=== PATIENT | male | born 1965 | race Caucasian/White ===

== ENCOUNTER 2017-09-01 06:51 | Day surgery (SDC) | payer OTHER ==
[~2017-09-01] VITALS: Ht 182.9 cm; Wt 106.6 kg
--- NOTE | 2017-09-01 08:33 | Operative Note ---
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 His father had colon cancer at the age of 58 and underwent low anterior resection. The patient did have a normal colonoscopy 9 years ago (Dr. Zbigniew Grimes). The patient reports no abdominal pain, weight loss, change in his bowel habits or rectal bleeding. Performing Provider: Alo Liu MD Referrring Provider: Emerita BECKER Sedation: MAC sedation Procedure: Prior to the procedure, a history and physical exam was performed, and patient medications and allergies were reviewed. The risks and benefits of the procedure and the sedation options and risks were discussed with the patient. All questions were answered and informed consent was obtained. Patient identification and proposed procedure were verified by the physician and the nurse. The patient was placed in a left lateral decubitus position. Throughout the procedure, the patient's blood pressure, pulse, and oxygen saturations were monitored continuously. Findings: On digital rectal examination there was normal rectal tone. There were no external hemorrhoids. The prostate was mildly firm, but 2+, smooth and symmetric without nodules. The colonoscope was introduced through the anal canal to the rectum and advanced to the cecum. The ileocecal valve and appendiceal orifice were identified. The scope was advanced a short distance into the ileum which appeared grossly normal. The scope was then withdrawn into the colon. The cecum, ascending, transverse, descending, sigmoid and rectum were grossly normal. There were no mucosal abnormalities identified. Upon retroflexion within the rectum there were grade 1 internal hemorrhoids. There was a moderate amount of fiber residue and the Franklin preparation score was 7. Impressions: 1. Normal colonoscopy with intubation of the terminal ileum Recommendations: Based upon family history, I would recommend repeat surveillance/screening colonoscopy again in 5 years. Complications: None EBL (ml): 0 at 0855
[2017-09-01 09:35] VITALS: BP 116/72
== END 2017-09-01 09:19 | disposition home or self-care (01) ==
LOC: SDC 06:51
PROVIDERS: Internal Medicine Gastroenterology
PROC: 0DJD8ZZ Inspection of Lower Intestinal Tract, Via Natural or Artificial Opening Endoscopic (ICD-10-PCS; 2017-09-01)
PROC: 0DJD8ZZ Inspection of Lower Intestinal Tract, Via Natural or Artificial Opening Endoscopic (ICD-10-PCS; principal; 2017-09-01 08:00)
DX: Z12.11 Encounter for screening for malignant neoplasm of colon (principal); Z80.0 Family history of malignant neoplasm of digestive organs